=== PATIENT | female | born 1990 | race Caucasian/White ===

== ENCOUNTER → 2017-02-08 | Outpatient (CLI) | payer BC | END | disposition home or self-care (01) | LOC: RAD.S 10:01 | DX: T81.4XXA Infection following a procedure, initial encounter (principal); N73.9 Female pelvic inflammatory disease, unspecified; N71.9 Inflammatory disease of uterus, unspecified ==

== ENCOUNTER 2017-04-13 00:01 | Emergency (ER) | payer BC ==
--- NOTE | 2017-04-16 11:59 | ER ---
ADMIT: 04/13/2017 RM/LOC: ER [facility] MR#: [id number] [facility] [address] [place], [place] [id number] [address] [place], [place] [address] Emergency Room Report SEX: F AGE: 27 : 1990 DATE: 04/13/2017 HISTORY OF PRESENT ILLNESS: The patient is a 27-year-old female with a past medical history of palpitation, who is on lisinopril allegedly and hydrochlorothiazide, came to the ER with allegedly overdose, the patient states that she had gone into a situational problem related to the spouse and she drank a few glasses of the red wine and after that she took 1 or 2 of the lisinopril pills and allegedly told the that she took a lot of them. The patient denies taking any other medications, the patient denies any head trauma or fall. Allegedly, the spouse called 911 and law enforcement, and the patient was brought to the ER. The patient states that she just wanted to make her frightened, the patient denies any consumption of the other medications or Tylenol or using any drugs. The patient denies any trauma. PHYSICAL EXAMINATION: GENERAL: The patient was tachycardic at 110 and was mildly agitated and in moderate distress. The patient was alert, oriented to person, place, and time. There are no obvious signs of trauma. HEAD AND NECK: Pupils are 3 mm reactive to light bilaterally. No nystagmus, trachea midline. LUNGS: Clear, the patient is not febrile. HEART: Normal heart sounds with soft abdomen, and the rest of the physical exam is also noncontributory and negative. The patient denies any suicidal ideation or homicidal ideation and denies any hallucinations or delusions. NEUROLOGIC: Grossly normal. The patient was negative for urine test. Atenolol level was 115. Salicylate level was 3.1, and urine tox was negative, and Tylenol level was less than 2. UA was normal, and CMP was noncontributory and also CBC was also normal and noncontributory. The patient received IV fluid 1 L of normal selling, was observed in the ER, tachycardia moderately improved. The patient was in no distress and no discomfort and was medically cleared to [facility] for further evaluation. Jerman Mendoza MD/ michael JOB #: [id number] CC: Jerman Mendoza MD, Attending Physician Gabriel Avila MD, Family Physician
== END 2017-04-13 01:50 ==
LOC: ER 00:01
DX: T46.4X1A Poisoning by angiotensin-converting-enzyme inhibitors, accidental (unintentional), initial encounter (principal); F10.129 Alcohol abuse with intoxication, unspecified; F99 Mental disorder, not otherwise specified; R00.0 Tachycardia, unspecified; F17.200 Nicotine dependence, unspecified, uncomplicated; Z88.0 Allergy status to penicillin; Z79.899 Other long term (current) drug therapy